=== PATIENT | male | born 1990 | race Caucasian/White ===

== ENCOUNTER 2016-12-25 10:58 | Emergency (ER) | payer MEDICAID, OTHER ==
[2016-12-25 11:21] VITALS: RESP 18; TEMP 98.6
[2016-12-25 12:38] VITALS: BP 126/79; PULSE 87; O2SAT 93
== END 2016-12-25 12:35 | disposition home or self-care (01) | DRG 935 ==
LOC: ED 10:58
DX: T23.201A Burn of second degree of right hand, unspecified site, initial encounter (principal); T31.0 Burns involving less than 10% of body surface; M79.641 Pain in right hand; V19.9XXA Pedal cyclist (driver) (passenger) injured in unspecified traffic accident, initial encounter
CPT/HCPCS: 73130; 99284; A6402; A6446

== ENCOUNTER 2018-04-25 21:40 | Emergency (ER) | payer MEDICAID ==
[2018-04-25] MEDS: SODIUM CHLORIDE 0.9% 1000ML 1,000 ML IV SCH ×2 (21:50→22:58)
[2018-04-25 22:07] LABS: BASOPHILS % (AUTO) 1 % (0-3); EOSINOPHILS % (AUTO) 1 % (0-9); HEMATOCRIT 46 % (39-53); HEMOGLOBIN 15.6 gm/dl (13.5-17.7); LYMPHOCYTES % (AUTO) 13.3 % (10-50); MEAN CORPUSCULAR HEMOGLOBIN 29.6 pg (27.0-32.0); MEAN CORPUSCULAR HGB CONC 34.2 gm/dl (32.0-36.0); MEAN CORPUSCULAR VOLUME 87 fL (80-100); MONOCYTES % (AUTO) 5.8 % (0-12); NEUTROPHILS % (AUTO) 78.9 % (37-80)
[2018-04-25 22:09] LABS: LACTIC ACID 2.2 mMol/L (0.0-2.0)
[2018-04-25 22:20] LABS: ALBUMIN 3.9 gm/dl (3.4-5.0); BILIRUBIN,TOTAL 0.6 mg/dl (0.2-1.0); CALCIUM 9.2 mg/dl (8.5-10.1); CARBON DIOXIDE 20.9 mEq/L (21-32); CREATININE 1.22 mg/dl (0.80-1.30); POTASSIUM 3.6 mMol/L (3.5-5.1); TOTAL PROTEIN 7.3 gm/dl (6.4-8.2)
[2018-04-25 23:06] VITALS: O2SAT 95
[2018-04-25] MEDS ORDERED: BACITRACIN 500 U/GM OIN TOP ONE ×2 (23:18→23:21)
[2018-04-25 23:52] VITALS: TEMP 97.4
[2018-04-25 23:53] VITALS: BP 116/60; PULSE 103; RESP 22
== END 2018-04-26 | DRG 923 ==
LOC: ED 21:40
DX: T68.XXXA Hypothermia, initial encounter (principal); F15.10 Other stimulant abuse, uncomplicated
CPT/HCPCS: 73130; 80053; 82550; 85025; 93005; 96365; 96366; 99284; 99285; G0390; A6232; A9270-GY

== ENCOUNTER 2018-10-20 16:40 | Emergency (ER) | payer MEDICAID | END 2018-10-20 19:32 | LOC: ED 16:40 ==